=== PATIENT | female | born 1975 | race Caucasian/White ===

== ENCOUNTER 2016-07-18 16:30 | Emergency (ER) | payer OTHER ==
[~2016-07-18] VITALS: Ht 165.1 cm; Wt 64.3 kg
[~2016-07-18 16:30] MED LIST: ALBUAER2 INH; MULT-513 PO
[2016-07-18 16:41] VITALS: Ht 165.1 cm; Wt 64.3 kg
[2016-07-18] MEDS ORDERED: VNTHFA/IN INH (16:50)
[2016-07-18] MEDS ORDERED: ALBUT/IPRATROP 3MG/0.5MG NEB 3 ML VIAL INH ONE (17:00)
--- NOTE | 2016-07-18 17:43 | DIAGNOSTIC IMAGING REPORT ---
CHEST 2 VIEWS ROUTINE CLINICAL HISTORY: cough. Recent pneumonia COMPARISON STUDY: No previous studies for comparison. FINDINGS: The cardiac and mediastinal contours are normal. There is no evidence of focal pulmonary consolidation. There is no evidence of failure. No pleural effusions are visualized.[ Tiny nodular opacities visualized towards each lung base, likely relate to either the nipple complex, or are postinflammatory. IMPRESSION: No active disease in the chest. Electronically signed by: Donis Cotton M.D. 07/18/2016 5:42 PM Dictated Date/Time: 07/18/2016 5:41 PM
[2016-07-18 18:00] VITALS: BP 107/67; PULSE 71; TEMP 36.7; O2SAT 96
[2016-07-18] MEDS ORDERED: PRED20TA PO (18:05)
--- NOTE | 2016-07-18 19:28 | EMERGENCY ROOM VISIT NOTE ---
History First contact with patient: 16:45 Chief Complaint: RESPIRATORY PROBLEMS Stated Complaint: ASTHMA ATTACKS, COUGH Nursing Triage Summary: see triage note History of Present Illness The patient is a 40 year old female who presents to the Emergency Room with complaints of asthma symptoms for the past 2 weeks. The patient was diagnosed with pneumonia at an urgent care clinic about 2 weeks ago, and completed a course of antibiotics and prednisone. She does have a history of well- controlled asthma, and typically does not need to use her albuterol inhaler. She states that for the past week she has needed her inhaler every 2-3 hours. She has a persistent and dry cough but no fever. She has been eating and drinking as normal, but was feeling worse today. She rates her current discomfort is 7/10. Review of Systems More than 10 systems were reviewed and otherwise negative with the exception of history of present illness. Past Medical/Surgical History History of asthma Family History No pertinent family history Social History Smoking Status: Never Smoker Current/Historical Medications Scheduled Multivitamins/Minerals (Mvi With Minerals), 1 TAB PO DAILY Prednisone (Prednisone), 0 PO DAILY Scheduled PRN Albuterol Hfa (Ventolin Hfa), 2 PUFFS INH QID PRN for SOB/Wheezing Allergies Coded Allergies: Cat Dander (Verified Allergy, Unknown, asthma symtoms, 07/18/16) Dog Dander (Verified Allergy, Unknown, asthma symptoms, 07/18/16) Dust (Verified Allergy, Unknown, asthma symptoms, 07/18/16) No Known Drug Allergy (Verified Allergy, Unknown, ., 07/18/16) Physical Exam Vital Signs Date Time Temp Pulse Resp B/P Pulse Ox O2 Delivery O2 Flow Rate FiO2 07/18/16 18:00 36.7 71 18 107/67 96 07/18/16 17:22 96 Room Air 07/18/16 16:41 36.7 71 18 107/67 98 Room Air Pain Rating (0-10): 0 Physical Exam VITALS: Vitals are noted on the nurse's note and reviewed by myself. Vital signs stable. GENERAL: Well-developed, well-nourished, white female, who is in no acute distress and resting comfortably. Patient is cooperative with the examination. Dry cough appreciated. HEART: Regular rate and rhythm without murmurs gallops or rubs. LUNGS: Coarse breath sounds throughout with scattered wheezing and rhonchi ABDOMEN: Positive normal bowel sounds x 4. Soft, nontender, without masses or organomegaly. No guarding or rebound tenderness. MUSCULOSKELETAL: No muscle atrophy, erythema, or edema noted. Full range of motion without joint tenderness in all extremities. Medical Decision & Procedures ER Provider Diagnostic Interpretation: CHEST 2 VIEWS ROUTINE CLINICAL HISTORY: cough. Recent pneumonia COMPARISON STUDY: No previous studies for comparison. FINDINGS: The cardiac and mediastinal contours are normal. There is no evidence of focal pulmonary consolidation. There is no evidence of failure. No pleural effusions are visualized.[ Tiny nodular opacities visualized towards each lung base, likely relate to either the nipple complex, or are postinflammatory. IMPRESSION: No active disease in the chest. Medications Administered Medications (Trade) Dose Ordered Sig/Alfred Route Start Time Stop Time Status Last Admin Dose Admin Albuterol/ Ipratropium (Duoneb) 3 ml NOW ONCE INH 07/18/16 17:00 07/18/16 17:01 DC 07/18/16 17:21 3 ML Prednisone (PredniSONE TAB) 60 mg STK-MED ONCE .ROUTE 07/18/16 17:16 07/18/16 17:17 DC 07/18/16 17:21 50 MG ED Course Physical exam and history were performed. Nursing notes and EMR were reviewed. Patient appears to have persistent cough and asthma-like symptoms for the past few weeks. She was diagnosed with pneumonia as an outpatient and did complete antibiotics. On exam she does appear to have asthma-like symptoms. The patient was given 50 mg oral prednisone and a DuoNeb treatment. Chest x-ray was performed. The patient's chest x-ray is as above and does not show signs of persistent pneumonia. On reevaluation she had significantly improved air exchange and decreased wheezing. She subjectively felt much better, and overall seems stable for discharge home. I suspect the patient is having a persistent asthma exacerbation, and will give her a tapering dose of prednisone for her symptoms. The patient is to continue her inhaler as previously prescribed. She is to follow with her PCP and was otherwise invited back to the ER with any new, worsening, or concerning symptoms. The chart was completed utilizing [employer] Voice Recognition Software. Grammatical errors, random word insertions, pronoun errors, and incomplete sentences are an occasional consequence of this system due to software limitations, ambient noise, and hardware issues. Any formal questions or concerns about the content, text, or information contained within the body of this dictation should be directly addressed to the provider for clarification. . Medical Decision Differential diagnosis: Etiologies such as infections, reactive airway disease, pneumonia, pneumothorax , COPD, CHF, cardiac ischemia, pulmonary embolism, musculoskeletal, gastrointestinal, as well as others were entertained. Impression Primary Impression: Asthma exacerbation Departure Information Dispostion Home / Self-Care Condition GOOD Prescriptions Prednisone (Prednisone) 20 Mg Tab 0 PO DAILY, #18 TAB 3 DAILY FOR 3 DAYS, THEN 2 DAILY FOR 3 DAYS, THEN 1 DAILY FOR 3 DAYS. Prov: Rancho Joseph PA-C 07/18/16 Forms HOME CARE DOCUMENTATION FORM, IMPORTANT VISIT INFORMATION Patient Instructions My [facility] Additional Instructions You were seen and evaluated today on an emergency basis only. This is not a substitute for, or an effort to provide, complete comprehensive medical care. It is not possible to recognize and treat all injuries or illnesses in a single emergency department visit. For this reason it is recommended that you followup with your primary care physician this week for ongoing care and evaluation. Take prednisone as prescribed. Continue your inhaler as needed. You are welcome to return to the emergency department anytime with new, worsening, or concerning symptoms.
== END 2016-07-18 18:00 | disposition home or self-care (01) ==
LOC: C.EDB 16:33 → C.EDC 18:00
DX: J45.901 Unspecified asthma with (acute) exacerbation (principal); Z87.01 Personal history of pneumonia (recurrent)

== ENCOUNTER → 2016-11-04 | Outpatient (CLI) | payer OTHER ==
[~2016-11-04] MED LIST changes: -ALBUAER2 INH; +PRED20TA PO; +VNTHFA/IN INH
--- NOTE | 2016-11-04 11:06 | DIAGNOSTIC IMAGING REPORT ---
CHEST 2 VIEWS ROUTINE HISTORY: 41 years-old Female J45.901 Asthma exacerbation acute shortness of breath with history of walking pneumonia. COMPARISON: Chest radiograph 07/18/2016 TECHNIQUE: Frontal and lateral views of the chest FINDINGS: Cardiomediastinal and hilar silhouettes are within normal limits. There is no pneumothorax, pleural effusion or focal airspace consolidation. No overt pulmonary edema. Postsurgical changes involve the left shoulder suggesting prior labral repair. Bones are grossly intact. IMPRESSION: No acute cardiopulmonary process. The above report was generated using voice recognition software. It may contain grammatical, syntax or spelling errors. Electronically signed by: Jhon Garza M.D. 11/04/2016 11:04 AM Dictated Date/Time: 11/04/2016 11:03 AM
== END | disposition home or self-care (01) ==
LOC: C.RAD 10:16
PROVIDERS: ATTEND Internal Medicine
DX: J45.901 Unspecified asthma with (acute) exacerbation (principal)

== ENCOUNTER → 2017-03-14 | Outpatient (CLI) | payer OTHER ==
[~2017-03-14] MED LIST changes: -PRED20TA PO
== END | disposition home or self-care (01) ==
LOC: C.PAPS 08:57
PROVIDERS: ATTEND Physician Assistant
DX: Z12.4 Encounter for screening for malignant neoplasm of cervix (principal)

== ENCOUNTER → 2017-03-21 | Outpatient (CLI) | payer OTHER | END | disposition home or self-care (01) | LOC: C.LABSPEC 16:52 | PROVIDERS: ATTEND Physician Assistant | DX: Z30.430 Encounter for insertion of intrauterine contraceptive device (principal) ==

== ENCOUNTER → 2017-05-02 | Outpatient (CLI) | payer OTHER | END | disposition home or self-care (01) | LOC: C.LABSPEC 17:42 | PROVIDERS: ATTEND Physician Assistant | DX: N89.8 Other specified noninflammatory disorders of vagina (principal) ==